=== PATIENT | male | born 1955 ===

== ENCOUNTER 2023-05-15 21:00 | Emergency (ER) | payer OTHER ==
[~2023-05-15] VITALS: Ht 182.9 cm; Wt 97.5 kg
[2023-05-15 21:24] VITALS: BP 146/59
== END 2023-05-15 21:46 | disposition left against medical advice (07) ==
LOC: ER 21:00
DX: F10.129 Alcohol abuse with intoxication, unspecified (principal); Z53.21 Procedure and treatment not carried out due to patient leaving prior to being seen by health care provider
CPT/HCPCS: 99281